=== PATIENT | male | born 1980 | race Hispanic/Latino ===

== ENCOUNTER 2017-06-13 13:39 | Emergency (ER) | payer OTHER ==
[2017-06-13 13:53] VITALS: RESP 16; TEMP 98.7
[2017-06-13 13:54] VITALS: BMI 39.1
--- NOTE | 2017-06-13 15:35 | ED PDOC ---
Arrival/HPI - General Chief Complaint: Lower Extremity Problem/Injury Time Seen by Provider: 06/13/17 14:07 Historian: Patient - History of Present Illness Narrative History of Present Illness (Text): 06/13/17 15:35 37 yo male come in for evaluation of left ankle/lower leg pain, bruising and some swelling developed 1 week ago after sustained blunt injury at work. Pt reports, " leg was caught between two plates". Pt sts, noted some bruising few days ago. Otherwise, pt denies obvious deformity, open wounds, denies weakness, sensory or vascular deficits to Left leg. Ambulate to Ed for evaluation with stable gait, not in any apparent distress. Past Medical History - Provider Review Nursing Documentation Reviewed: Yes - Travel History Have you recently traveled outside US w/in the past 3 mons?: No - Past History Past History: No Previous - Infectious Disease Hx of Infectious Diseases: None - Tetanus Immunization Tetanus Immunization: Unknown - Past Medical History Past Medical History: No Previous - Psychiatric Hx Depression: No Hx Emotional Abuse: No Hx Physical Abuse: No Hx Substance Use: No - Suicidal Assessment Feels Threatened In Home Enviroment: No Family/Social History - Physician Review Nursing Documentation Reviewed: Yes Family/Social History: No Known Family HX Smoking Status: Former Smoker Hx Alcohol Use: Yes Frequency of alcohol use: Socially Hx Substance Use: No Hx Substance Use Treatment: No Allergies/Home Meds Allergies/Adverse Reactions: Allergies No Known Allergies Allergy (Verified 05/19/13 16:45) Home Medications: Home Meds Medication Instructions Recorded Confirmed No Known Home Med 05/19/13 05/19/13 Review of Systems - Physician Review All systems were reviewed & negative as marked: Yes - Review of Systems Constitutional: Normal Musculoskeletal: Other (Left ankle and lower leg pain) Skin: Other (bruising) Neurological: Normal Endocrine: Normal Hemo/Lymphatic: Normal Psychiatric: Normal Physical Exam Vital Signs Reviewed: Yes Vital Signs Temp Pulse Resp BP Pulse Ox 06/13/17 13:40 98.7 F 98 H 16 130/84 97 Temperature: Afebrile Blood Pressure: Normal Pulse: Regular Respiratory Rate: Normal Appearance: Positive for: Well-Appearing, Non-Toxic, Comfortable Pain Distress: Mild Mental Status: Positive for: Alert and Oriented X 3 - Systems Exam Upper Extremity: Present: Normal Inspection Lower Extremity: Present: NORMAL PULSES, Normal ROM, Tenderness (mild tenderness over distal fibula and lateral malleolus of Left ankle with diffuse trace ecchymoses over distal tib/fib extend down to ankle area over lateral mallolus with trace edema over dorsal aspect left foot), Neurovascularly Intact , Capillary Refill < 2 s (Left foot). No: Erythema, Deformity Neurological: Present: GCS=15, Speech Normal Skin: Present: Warm, Dry, Normal Color Psychiatric: Present: Alert, Oriented x 3 Medical Decision Making ED Course and Treatment: 06/13/17 On re-eavl, pt is afebrile, hemodynamicaly stable. Non-toxic. Ambulatory in Ed with stable gait. Left LE: exam c/w contusion. FAROM, no neurovascular deficits. xray review (-)a cute fx. Lester wrap applied to left ankle/distal tib/fib. pt advised and ref. to f/u with ortho in 2-3 days for re-eval. return to ED if any worsening or new changes. - RAD Interpretation Radiology Orders: 06/13/17 14:49 ANKLE LEFT 3 VIEWS ROUTINE [RAD] Stat FOOT LEFT 3 VIEWS ROUTINE [RAD] Stat TIBIA FIBULA LEFT [RAD] Stat (-)acute fx or dislocation Disposition/Present on Arrival - Present on Arrival Any Indicators Present on Arrival: No History of DVT/PE: No History of Uncontrolled Diabetes: No Urinary Catheter: No History of Decub. Ulcer: No History Surgical Site Infection Following: None - Disposition Have Diagnosis and Disposition been Completed?: Yes Diagnosis: Contusion of leg Disposition: HOME/ ROUTINE Disposition Time: 15:32 Patient Plan: Discharge Condition: STABLE Discharge Instructions (ExitCare): Contusion in Adults (ED) Additional Instructions: keep leg elevate as much as possible Lester wrap for 1 week Avoid prolong walking for 1 week Follow up with PMD, Orthopedist in 1-2 days for re-evaluation. Return to ED if any worsening or new changes. Referrals: PCP,NO [Primary Care Provider] - Follow up with primary Gio Portillo MD [Staff Provider] - Follow up with primary [facility] [Outside] - Follow up with primary Forms: [employer] (Serbian), [employer] (German), WORK NOTE
[2017-06-13 16:00] VITALS: BP 117/77; PULSE 88; O2SAT 94
--- NOTE | 2017-06-13 17:11 | RAD ---
PROCEDURE: Radiographs of the left tibia and fibula. HISTORY: injury COMPARISON: None available. TECHNIQUE: Frontal and lateral views obtained. FINDINGS: BONES: No fracture or destructive lesion. JOINT SPACES: Unremarkable. OTHER FINDINGS: None. IMPRESSION: Unremarkable radiographs of the left tibia and fibula.
--- NOTE | 2017-06-13 17:12 | RAD ---
PROCEDURE: Left Ankle Radiographs. HISTORY: injury COMPARISON: None FINDINGS: BONES: Normal. No fracture. Small plantar calcaneal spur is identified. The ankle mortise appears intact send JOINTS: Normal. No osteoarthritis. Ankle mortise maintained. Talar dome intact SOFT TISSUES: Normal. OTHER FINDINGS: None. IMPRESSION: Normal left ankle radiographs.
--- NOTE | 2017-06-13 17:12 | RAD ---
PROCEDURE: Left Foot Radiographs. HISTORY: injury COMPARISON: None. FINDINGS: BONES: Normal. No fracture. Small plantar calcaneal spurs identified at the calcaneal base. JOINTS: Normal. SOFT TISSUES: Normal. OTHER FINDINGS: None. IMPRESSION: Normal left foot radiographs.
== END 2017-06-13 16:00 | disposition home or self-care (01) ==
LOC: ED 13:39
DX: S80.12XA Contusion of left lower leg, initial encounter (principal); W23.0XXA Caught, crushed, jammed, or pinched between moving objects, initial encounter; Y93.89 Activity, other specified; Y92.69 Other specified industrial and construction area as the place of occurrence of the external cause; Y99.0 Civilian activity done for income or pay

== ENCOUNTER 2018-03-19 14:16 | Inpatient (IN) | payer OTHER ==
[2018-03-19 14:40] VITALS: BMI 39.4
--- NOTE | 2018-03-19 15:01 | ED PDOC ---
Arrival/HPI - General Chief Complaint: Abdominal Pain Time Seen by Provider: 03/19/18 14:21 Historian: Patient - History of Present Illness Narrative History of Present Illness (Text): you were treated in the ED today for hx of recent umbilical hernia repair on 03/05, had wound evaluated with brian removed past Monday and felt some pressure and then protruding of belly button but wound rednss/wound discharge/ otherwise without any nausea/vomiting/headache/dizziness/difficulty breathing/ chest pain/abdomen pain/numbness/tingling/loss of limb function/pain with urination. You were eating/drinking/passing gas and having normal bowel movements. Time/Duration: 24 hours Symptom Onset: Gradual Symptom Course: Improving Quality: Other Activities at Onset: Rest Context: Sitting Past Medical History - Provider Review Nursing Documentation Reviewed: Yes - Travel History Have you recently traveled outside US w/in the past 3 mons?: No - Past History Past History: No Previous - Infectious Disease Hx of Infectious Diseases: None - Tetanus Immunization Tetanus Immunization: Unknown - Past Medical History Past Medical History: No Previous - Psychiatric Hx Depression: No Hx Emotional Abuse: No Hx Physical Abuse: No Hx Substance Use: No - Anesthesia Hx Anesthesia: Yes Hx Anesthesia Reactions: No Hx Malignant Hyperthermia: No - Suicidal Assessment Feels Threatened In Home Enviroment: No Family/Social History - Physician Review Nursing Documentation Reviewed: Yes Family/Social History: No Known Family HX Smoking Status: Former Smoker Hx Alcohol Use: Yes Hx Substance Use: No Hx Substance Use Treatment: No Allergies/Home Meds Allergies/Adverse Reactions: Allergies No Known Allergies Allergy (Verified 03/19/18 14:44) Home Medications: Home Meds Medication Instructions Recorded Confirmed No Known Home Med 05/19/13 03/19/18 Review of Systems - Review of Systems Constitutional: Normal Eyes: Normal ENT: Normal Respiratory: Normal Cardiovascular: Normal Gastrointestinal: Normal Genitourinary Male: Normal Musculoskeletal: Normal Skin: Normal Neurological: Normal Endocrine: Normal Hemo/Lymphatic: Normal Physical Exam Vital Signs Reviewed: Yes Vital Signs Temp Pulse Resp BP Pulse Ox 03/19/18 14:40 98.1 F 96 H 18 141/94 H 98 Temperature: Afebrile Blood Pressure: Hypertensive Pulse: Regular Respiratory Rate: Normal Appearance: Positive for: Well-Appearing, Non-Toxic, Comfortable Pain Distress: None Mental Status: Positive for: Alert and Oriented X 3 - Systems Exam Head: Present: Atraumatic, Normocephalic Pupils: Present: PERRL Extroacular Muscles: Present: EOMI Conjunctiva: Present: Normal Ears: Present: Normal Mouth: Present: Moist Mucous Membranes Pharnyx: Present: Normal Nose (External): Present: Atraumatic Nose (Internal): Present: Normal Inspection Neck: Present: Normal Range of Motion Respiratory/Chest: Present: Clear to Auscultation, Good Air Exchange Cardiovascular: No: Regular Rate and Rhythm, Murmurs, Normal S1, S2, Irregular Rhythm, Peripheal Pulses Present, Tachycardic, Bradycardic, Rub, Gallop, Muffled , Other Abdomen: Present: Scars, Other ( belly button wound clean/dry/intact with mild protruding of belly button but without any tenderness or discomfort). No: Tenderness, Distention, Normal Bowel Sounds, Peritoneal Signs, Rebound, Guarding , McBurney's Point Tender, Rovsing's Sign Present, Hernias, Feeding Tubes, Ostomy Tubes, Mass/Organomegaly Back: Present: Normal Inspection Upper Extremity: Present: Normal Inspection Lower Extremity: Present: Normal Inspection Neurological: Present: GCS=15, CN II-XII Intact, Speech Normal, Motor Func Grossly Intact Skin: Present: Warm, Normal Color Psychiatric: Present: Alert, Oriented x 3, Normal Insight, Normal Concentration Medical Decision Making ED Course and Treatment: you were treated in the ED today for hx of recent umbilical hernia repair on 03/05, had wound evaluated with brian removed past Monday and felt some pressure and then protruding of belly button but wound rednss/wound discharge/ otherwise without any nausea/vomiting/headache/dizziness/difficulty breathing/ chest pain/abdomen pain/numbness/tingling/loss of limb function/pain with urination. You were eating/drinking/passing gas and having normal bowel movements. You were otherwise breathing easily, smiling joking around in the ED , good strength/sensation, walking easily, clear lungs, no abdomen tenderness, belly button wound clean/dry/intact with mild protruding of belly button but without any tenderness or discomfort, no fever temp 98.1, stable heart rate 96, stable breathing rate 18, excellent oxygen level 98% room air, elevated blood pressure 141/94 which we recommend repeat in 2-3 days primary care office to determine further treatment, discussion with Dr. Turcios surgeon/ Dr. Sharma surgical team who stated you can go home at this time and followup with Dr. Vega office [phone] in 1-2 days to review repeat procedure to bring down your umbilicus, observation done in the ED with improvement, counselled to monitor symptoms and thus discharged home. 1. Recommend follow-up primary care 1 -2 days to review symptoms, referral to Dr. Vega surgery [phone]. to review repeat procedure to bring down your umbilicus. 2. If any worsening pain, fever, chills, nausea, vomiting, difficulty breathing, numbness, loss of limb function, pain with urination or any medical condition then return to the ED. 03/19/18 15:02 03/19/18 15:26 Reassessment Condition: Re-examined, Improved Disposition/Present on Arrival - Present on Arrival Any Indicators Present on Arrival: No History of DVT/PE: No History of Uncontrolled Diabetes: No Urinary Catheter: No History of Decub. Ulcer: No History Surgical Site Infection Following: None - Disposition Have Diagnosis and Disposition been Completed?: Yes Diagnosis: Encounter for postoperative wound check Disposition: HOME/ ROUTINE Disposition Time: 15:29 Patient Plan: Discharge Condition: IMPROVED Additional Instructions: you were treated in the ED today for hx of recent umbilical hernia repair on 03/05, had wound evaluated with brian removed past Monday and felt some pressure and then protruding of belly button but wound rednss/wound discharge/ otherwise without any nausea/vomiting/headache/dizziness/difficulty breathing/ chest pain/abdomen pain/numbness/tingling/loss of limb function/pain with urination. You were eating/drinking/passing gas and having normal bowel movements. You were otherwise breathing easily, smiling joking around in the ED , good strength/sensation, walking easily, clear lungs, no abdomen tenderness, belly button wound clean/dry/intact with mild protruding of belly button but without any tenderness or discomfort, no fever temp 98.1, stable heart rate 96, stable breathing rate 18, excellent oxygen level 98% room air, elevated blood pressure 141/94 which we recommend repeat in 2-3 days primary care office to determine further treatment, discussion with Dr. Turcios surgeon/ Dr. Sharma surgical team who stated you can go home at this time and followup with Dr. Vega office [phone] in 1-2 days to review repeat procedure to bring down your umbilicus, observation done in the ED with improvement, counselled to monitor symptoms and thus discharged home. 1. Recommend follow-up primary care 1 -2 days to review symptoms, referral to Dr. Vega surgery [phone]. to review repeat procedure to bring down your umbilicus. 2. If any worsening pain, fever, chills, nausea, vomiting, difficulty breathing, numbness, loss of limb function, pain with urination or any medical condition then return to the ED. Referrals: Gorge Vega MD [Staff Provider] - Follow up with primary Forms: [employer] (Belarusian)
[2018-03-19 17:06] LABS: BASO # 0.03 K/mm3 (0.0-2.0); BASO % 0.4 % (0.0-3.0); EOS # 0.2 (0.0-0.7); EOS % 1.9 % (1.5-5.0); GRAN # 5.35 (1.4-6.5); GRAN % 63.7 % (50.0-68.0); HEMOGLOBIN 16.7 g/dL (14.0-18.0); LYMPH # 2.3 (1.2-3.4); LYMPH % 27.1 % (22.0-35.0); MEAN CELL VOLUME 88.2 fl (80.0-105.0); MEAN CORPUSCULAR HEMOGLOBIN 31.2 pg (25.0-35.0); MEAN CORPUSCULAR HGB CONC 35.3 g/dl (31.0-37.0); MEAN PLATELET VOLUME 9.9 fl (7.0-11.0); MONO # 0.6 (0.1-0.6); MONO % 6.9 % (1.0-6.0); RBC 5.36 10^6/uL (3.5-6.1); WHITE BLOOD COUNT 8.4 10^3/ul (4.5-11.0)
[2018-03-19 17:17] LABS: ALB/GLOB RATIO 1.5 (1.1-1.8); ALBUMIN 4.8 g/dL (3.0-4.8); ALT/SGPT 60 U/L (7-56); AST/SGOT 52 U/L (17-59); BLOOD UREA NITROGEN 14 mg/dL (7-21); CALCIUM 9.6 mg/dL (8.4-10.5); GFR AFRICAN-AMERICAN > 60; GFR NON-AFRICAN AMERICAN > 60
--- NOTE | 2018-03-19 17:30 | CP.PCM.HP ---
History of Present Illness - History of Present Illness History of Present Illness: Surgery H&P 38 M with PSH of recent umbilical hernia repair came with recurrent hernia. [place] [facility] [place] had brian removed a few days ago. This AM , he had sharp pain on the umbilical area and noticed umbilical area skin bulging. Denies heavy lifting, fever, chills, nausea, vomiting, hematemesis , hematochezia, melena, constipation, SOB, chest pain or diarrhea. Area is enlarging and reports some skin changes with excoriation of the umbilical area skin. Pain worsen and decided to come to ED. PSH: Umbilical hernia repair (03/06) Present on Admission - Present on Admission Any Indicators Present on Admission: No Review of Systems - Review of Systems Review of Systems: See HPI Past Patient History - Infectious Disease Hx of Infectious Diseases: None - Tetanus Immunizations Tetanus Immunization: Unknown - Past Social History Smoking Status: Former Smoker - PSYCHIATRIC Hx Depression: No Hx Emotional Abuse: No Hx Physical Abuse: No Hx Substance Use: No - SURGICAL HISTORY Hx Surgeries: Yes Hx Herniorrhaphy: Yes - ANESTHESIA Hx Anesthesia: Yes Hx Anesthesia Reactions: No Hx Malignant Hyperthermia: No Meds Allergies/Adverse Reactions: Allergies Allergy/AdvReac Type Severity Reaction Status Date / Time No Known Allergies Allergy Verified 03/19/18 14:44 Physical Exam - Constitutional Appears: No Acute Distress - Head Exam Head Exam: ATRAUMATIC, NORMAL INSPECTION, NORMOCEPHALIC - Eye Exam Eye Exam: EOMI, Normal appearance, PERRL Pupil Exam: NORMAL ACCOMODATION, PERRL - ENT Exam ENT Exam: Mucous Membranes Moist, Normal Exam - Neck Exam Neck exam: Positive for: Normal Inspection - Respiratory Exam Respiratory Exam: Clear to Auscultation Bilateral, NORMAL BREATHING PATTERN - Cardiovascular Exam Cardiovascular Exam: REGULAR RHYTHM - GI/Abdominal Exam GI & Abdominal Exam: Hernia, Normal Bowel Sounds, Soft, Tenderness. absent: Distended, Firm, Guarding, Mass, Pulsatile Mass, Rebound, Rigid Additional comments: [id number] umbilical hernia bulge. 1x1cm hernia defect. TTP. SKin excoriation. Irreducible. infra umbilical incision clean dry and intact. [place] removed. - Exam Exam: NORMAL INSPECTION - Extremities Exam Extremities exam: Positive for: full ROM, normal inspection - Back Exam Back exam: NORMAL INSPECTION - Neurological Exam Neurological exam: Alert, CN II-XII Intact, Normal Gait, Oriented x3, Reflexes Normal - Psychiatric Exam Psychiatric exam: Normal Affect, Normal Mood - Skin Skin Exam: Dry, Intact, Normal Color, Warm Results - Vital Signs Recent Vital Signs: Last Vital Signs Temp 98.1 F 03/19/18 14:40 Pulse 86 03/19/18 16:16 Resp 18 03/19/18 16:16 BP 138/87 03/19/18 16:16 Pulse Ox 98 03/19/18 16:16 - Labs Result Diagrams: 03/19/18 16:53 03/19/18 16:53 Labs: Laboratory Results - last 24 hr 03/19/18 03/19/18 16:53 16:53 WBC 8.4 RBC 5.36 Hgb 16.7 Hct 47.3 MCV 88.2 MCH 31.2 MCHC 35.3 RDW 13.0 Plt Count 259 MPV 9.9 Gran % 63.7 Lymph % (Auto) 27.1 [place] % (Auto) 6.9 H Eos % (Auto) 1.9 Baso % (Auto) 0.4 Gran # 5.35 Lymph # (Auto) 2.3 [place] # (Auto) 0.6 Eos # (Auto) 0.2 Baso # (Auto) 0.03 Sodium 142 Potassium 4.3 Chloride 102 Carbon Dioxide 29 Anion Gap 16 BUN 14 Creatinine 0.8 Est GFR ( Amer) > 60 Est GFR (Non-Af Amer) > 60 Random Glucose 88 Calcium 9.6 Total Bilirubin 1.0 AST 52 ALT 60 H Alkaline Phosphatase 46 Total Protein 7.9 Albumin 4.8 Globulin 3.1 Albumin/Globulin Ratio 1.5 Assessment & Plan - Assessment and Plan (Free Text) Assessment: recurrent Incarcerated umbilical hernia s/p recent hernia repair with mesh -OR tomorrow for repair of recurrent incarcerated umbilical hernia -NPo after midnight -IVF LUDIVINA Vega
[2018-03-19] MEDS ORDERED: Morphine 5 MG/ML SYRINGE IVP PRN (17:43)
[2018-03-19 17:55] LABS: INR 0.99 (0.93-1.08); PARTIAL THROMBOPLASTIN TIME 25.2 Seconds (25.1-36.5); PROTHROMBIN TIME 11.3 SECONDS (9.4-12.5)
--- NOTE | 2018-03-19 18:36 | CP.PCM.PCO ---
Physician Communication Note - Physician Communication Note Physician Communication Note: Acute recurrent umbilical hernia today/OR in am
[2018-03-20 07:23] LABS: BASO # 0.04 K/mm3 (0.0-2.0); BASO % 0.5 % (0.0-3.0); EOS # 0.3 (0.0-0.7); EOS % 2.9 % (1.5-5.0); GRAN # 4.65 (1.4-6.5); HEMOGLOBIN 15.5 g/dL (14.0-18.0); LYMPH # 3.2 (1.2-3.4); LYMPH % 36.4 % (22.0-35.0); MEAN CELL VOLUME 88.9 fl (80.0-105.0); MEAN CORPUSCULAR HEMOGLOBIN 30.6 pg (25.0-35.0); MEAN CORPUSCULAR HGB CONC 34.4 g/dl (31.0-37.0); MEAN PLATELET VOLUME 9.9 fl (7.0-11.0); MONO # 0.6 (0.1-0.6); MONO % 7.2 % (1.0-6.0); RBC 5.06 10^6/uL (3.5-6.1); RED CELL DISTRIBUTION WIDTH 13.1 % (11.5-14.5); WHITE BLOOD COUNT 8.8 10^3/ul (4.5-11.0)
[2018-03-20 07:35] LABS: INR 1.04 (0.93-1.08); PARTIAL THROMBOPLASTIN TIME 29.1 Seconds (25.1-36.5)
--- NOTE | 2018-03-20 07:37 | RAD ---
HISTORY: preop COMPARISON: No prior. TECHNIQUE: Chest PA and lateral FINDINGS: LUNGS: No active pulmonary disease. PLEURA: No significant pleural effusion identified. No pneumothorax apparent. CARDIOVASCULAR: Normal. OSSEOUS STRUCTURES: No significant abnormalities. VISUALIZED UPPER ABDOMEN: Normal. OTHER FINDINGS: None. IMPRESSION: No active disease.
[2018-03-20 07:47] LABS: ALB/GLOB RATIO 1.5 (1.1-1.8); ALBUMIN 4.1 g/dL (3.0-4.8); ALT/SGPT 55 U/L (7-56); AST/SGOT 42 U/L (17-59); BLOOD UREA NITROGEN 17 mg/dL (7-21); CALCIUM 9.3 mg/dL (8.4-10.5); GFR AFRICAN-AMERICAN > 60; GFR NON-AFRICAN AMERICAN > 60
[2018-03-20] MEDS: Dextrose 5%/0.45% NS 1,000 ML IV SCH (08:53)
--- NOTE | 2018-03-20 11:20 | CARD ---
APPROVED REPORT EKG Measurement Heart [id number] <Conclusion> Normal sinus rhythm with sinus arrhythmia Incomplete right bundle branch block Borderline ECG
[2018-03-20] MEDS ORDERED: Propofol 10 mg/ml Inj (20 ML) ONE (16:04)
[2018-03-20] MEDS ORDERED: Midazolam 2 MG/2 ML VIAL ONE (16:05)
[2018-03-20] MEDS ORDERED: Lidocaine 1% Inj (20ml) ONE (16:05)
[2018-03-20] MEDS ORDERED: Rocuronium 10 mg/ml (5 ml) ONE ×2 (16:05→16:57)
[2018-03-20] MEDS ORDERED: Neostigmine Methylsulfate 3mg/3ml Syringe IV ONE (16:06)
[2018-03-20] MEDS ORDERED: Bupivacaine 0.5% Inj(30mL) ONE (16:17)
[2018-03-20] MEDS ORDERED: HYDROmorphone 0.5 mg/0.5 ml ISec IVP PRN (18:04)
--- NOTE | 2018-03-20 18:06 | PCM.SURG1 ---
Surgeon's Initial Post Op Note - Surgeon's Notes Surgeon: Dr. reyes Director [employer]: Ayan Sharma PGY2 Type of Anesthesia: General Endo, Local Pre-Operative Diagnosis: incarcerated recurrent umbilical hernia Operative Findings: brown serous fluid collection with cavity 50cc in subcutaneous area. Mesh. Peritoneal mass. brown Intraperitonal serous fluids 50cc. Post-Operative Diagnosis: Incarcerated umbilical hernia, seroma Operation Performed: Abdominal hernia primary repair, removal of infected mesh, evacuationi of seroma Specimen/Specimens Removed: brown seroma 100cc, infected mesh, fibrotic inflammed tissue, seroma cavity Estimated Blood Loss: EBL {In ML}: 20 Blood Products Given: N/A Drains Used: Ky Busby Post-Op Condition: Fair Date of Surgery/Procedure: 03/20/18 Time of Surgery/Procedure: 18:09
[2018-03-20] MEDS ORDERED: HYDROmorphone 0.5 mg/0.5 ml ISec ONE ×2 (18:12→18:24)
[2018-03-20] MEDS ORDERED: Lactated Ringer's 1,000 ML IV SCH (18:15)
[2018-03-20] MEDS: Morphine 5 MG/ML SYRINGE IV PRN (20:30)
[2018-03-20] MEDS: metroNIDAZOLE IV 250mg/50 ml 250 MG/50 ML BAG IVPB SCH (21:55)
[2018-03-21] MEDS: Morphine 5 MG/ML SYRINGE IV PRN ×3 (02:00→21:47)
[2018-03-21] MEDS: Dextrose 5%/0.45% NS 1,000 ML IV SCH (05:48)
[2018-03-21] MEDS: metroNIDAZOLE IV 250mg/50 ml 250 MG/50 ML BAG IVPB SCH ×3 (05:48→21:37)
[2018-03-21] MEDS: Oxycodone/Acetaminophen 5/325 mg Tab PO PRN ×2 (06:56→16:14)
[2018-03-21 07:31] LABS: BASO # 0.03 K/mm3 (0.0-2.0); BASO % 0.3 % (0.0-3.0); EOS # 0.1 (0.0-0.7); EOS % 1.1 % (1.5-5.0); GRAN # 7.44 (1.4-6.5); GRAN % 69.6 % (50.0-68.0); HEMOGLOBIN 13.8 g/dL (14.0-18.0); LYMPH # 2.3 (1.2-3.4); LYMPH % 21.1 % (22.0-35.0); MEAN CORPUSCULAR HEMOGLOBIN 30.7 pg (25.0-35.0); MEAN CORPUSCULAR HGB CONC 34.1 g/dl (31.0-37.0); MEAN PLATELET VOLUME 10.1 fl (7.0-11.0); MONO # 0.8 (0.1-0.6); MONO % 7.9 % (1.0-6.0); RBC 4.5 10^6/uL (3.5-6.1); RED CELL DISTRIBUTION WIDTH 13.2 % (11.5-14.5); WHITE BLOOD COUNT 10.7 10^3/ul (4.5-11.0)
[2018-03-21 07:54] LABS: ALB/GLOB RATIO 1.5 (1.1-1.8); ALBUMIN 3.7 g/dL (3.0-4.8); ALT/SGPT 55 U/L (7-56); AST/SGOT 41 U/L (17-59); BLOOD UREA NITROGEN 17 mg/dL (7-21); CALCIUM 8.8 mg/dL (8.4-10.5); GFR AFRICAN-AMERICAN > 60; GFR NON-AFRICAN AMERICAN > 60
[2018-03-21] MEDS: cefTRIAXone 1 gm 1 GM/100 ML BAG IVPB SCH (10:49)
--- NOTE | 2018-03-21 11:45 | CP.PCM.PN ---
Subjective - Date & Time of Evaluation Date of Evaluation: 03/21/18 Time of Evaluation: 11:44 - Subjective Subjective: General Surgery: Dr Vega Pt S&E. POD#1 s/p exploratory lap w/ removal of infected mesh and primary closure of umbilical hernia. Pt reports he has abdominal pain, worse with coughing. Admits to passing flatus. Denies nausea/vomiting. Has been OOB and ambulating. Objective - Vital Signs/Intake and Output Vital Signs (last 24 hours): Temp Pulse Resp BP Pulse Ox 98.2 F 66 20 106/70 95 03/21/18 06:00 03/21/18 06:00 03/21/18 06:00 03/21/18 06:00 03/21/18 06:00 Intake and Output: 03/21/18 03/21/18 06:59 18:59 Intake Total 480 Balance 480 - Medications Medications: Current Medications Acetaminophen (Tylenol 325mg Tab) 650 mg PO Q4 PRN PRN Reason: Fever >100.4 F Dextrose/Sodium Chloride (Dextrose 5%/0.45% Ns 1000 Ml) 1,000 mls @ 100 mls/hr IV .Q10H [facility] Last Admin: 03/21/18 05:48 Dose: 100 mls/hr Metronidazole (Flagyl) 250 mg in 50 mls @ 100 mls/hr IVPB Q8 JAYME PRN Reason: Protocol Stop: 03/25/18 22:01 Last Admin: 03/21/18 05:48 Dose: 100 mls/hr Ceftriaxone Sodium (Rocephin 1 Gram Ivpb) 1 gm in 100 mls @ 100 mls/hr IVPB DAILY JAYME PRN Reason: Protocol Last Admin: 03/21/18 10:49 Dose: 100 mls/hr Metoclopramide HCl (Reglan) 10 mg IV ONCE PRN PRN Reason: Nausea/Vomiting Morphine Sulfate (Morphine) 5 mg IV Q6H PRN PRN Reason: Pain, severe (8-10) Last Admin: 03/21/18 11:10 Dose: 5 mg Ondansetron HCl (Zofran Inj) 4 mg IVP Q4 PRN PRN Reason: Nausea/Vomiting Oxycodone/Acetaminophen (Percocet 5/325 Mg Tab) 2 tab PO Q4H PRN PRN Reason: Pain, moderate (4-7) Stop: 03/23/18 18:21 Last Admin: 03/21/18 06:56 Dose: 2 tab - Labs Labs: 03/21/18 07:10 03/21/18 07:10 PT 12.0 SECONDS (9.4-12.5) 03/20/18 07:00 INR 1.04 (0.93-1.08) 03/20/18 07:00 APTT 29.1 Seconds (25.1-36.5) 03/20/18 07:00 - Constitutional Appears: Non-toxic, No Acute Distress - Eye Exam Eye Exam: Normal appearance - Respiratory Exam Respiratory Exam: absent: Accessory Muscle Use, Respiratory Distress - Cardiovascular Exam Cardiovascular Exam: REGULAR RHYTHM. absent: Tachycardia - GI/Abdominal Exam GI & Abdominal Exam: Soft, Tenderness (post-op and appropriate). absent: Distended, Firm, Guarding, Rigid, Mass, Rebound - Extremities Exam Extremities Exam: absent: Pedal Edema - Neurological Exam Neurological Exam: Alert, Awake, Oriented x3 - Psychiatric Exam Psychiatric exam: Normal Affect, Normal Mood - Skin Skin Exam: Normal Color, Warm Assessment and Plan - Assessment and Plan (Free Text) Assessment: 38M POD#1 s/p removal of infected mesh Plan: ok to start CLD f/u OR cultures cont abx pt needs to ambulate more d/w Dr Gary Hammond, PGY3
[2018-03-21] MEDS: Simethicone 80 mg Chewtab PO SCH ×2 (17:31→21:40)
[2018-03-22] MEDS: metroNIDAZOLE IV 250mg/50 ml 250 MG/50 ML BAG IVPB SCH ×3 (06:10→21:29)
[2018-03-22] MEDS: Dextrose 5%/0.45% NS 1,000 ML IV SCH (06:17)
[2018-03-22 07:40] VITALS: RESP 20
[2018-03-22] MEDS ORDERED: Morphine 5 MG/ML SYRINGE IV PRN (07:41)
--- NOTE | 2018-03-22 08:00 | CP.PCM.PN ---
Subjective - Date & Time of Evaluation Date of Evaluation: 03/22/18 Time of Evaluation: 07:56 - Subjective Subjective: General Surgery: Dr Vega Pt S&E. NAEO. Reports pain is present but controlled. Worse with movement. PT requesting alternative to percocet as that made him feel disoriented. Has been tolerating CLD. Denies any flatus yet. Has been OOB and ambulating frequently. Objective - Vital Signs/Intake and Output Vital Signs (last 24 hours): Temp Pulse Resp BP Pulse Ox 98.9 F 81 20 139/72 97 03/22/18 07:39 03/22/18 07:39 03/22/18 07:39 03/22/18 07:39 03/22/18 07:39 Intake and Output: 03/22/18 03/22/18 06:59 18:59 Intake Total 1215 Output Total 220 Balance 995 - Medications Medications: Current Medications Acetaminophen (Tylenol 325mg Tab) 650 mg PO Q4 PRN PRN Reason: Fever >100.4 F Dextrose/Sodium Chloride (Dextrose 5%/0.45% Ns 1000 Ml) 1,000 mls @ 100 mls/hr IV .Q10H [facility] Last Admin: 03/22/18 06:17 Dose: 100 mls/hr Metronidazole (Flagyl) 250 mg in 50 mls @ 100 mls/hr IVPB Q8 JAYME PRN Reason: Protocol Stop: 03/25/18 22:01 Last Admin: 03/22/18 06:10 Dose: 100 mls/hr Ceftriaxone Sodium (Rocephin 1 Gram Ivpb) 1 gm in 100 mls @ 100 mls/hr IVPB DAILY JAYME PRN Reason: Protocol Last Admin: 03/21/18 10:49 Dose: 100 mls/hr Ketorolac Tromethamine (Toradol) 15 mg IM Q6 PRN PRN Reason: Pain, severe (8-10) Stop: 03/27/18 07:40 Metoclopramide HCl (Reglan) 10 mg IV ONCE PRN PRN Reason: Nausea/Vomiting Morphine Sulfate (Morphine) 5 mg IV Q6H PRN PRN Reason: Pain, moderate (4-7) Ondansetron HCl (Zofran Inj) 4 mg IVP Q4 PRN PRN Reason: Nausea/Vomiting Simethicone (Mylicon Chew Tab) 40 mg PO QID JAYME Last Admin: 03/21/18 21:40 Dose: 40 mg Tramadol HCl (Ultram) 50 mg PO TID PRN PRN Reason: Pain, Mild (1-3) - Labs Labs: 03/21/18 07:10 03/21/18 07:10 PT 12.0 SECONDS (9.4-12.5) 03/20/18 07:00 INR 1.04 (0.93-1.08) 03/20/18 07:00 APTT 29.1 Seconds (25.1-36.5) 03/20/18 07:00 - Constitutional Appears: Non-toxic, No Acute Distress - ENT Exam ENT Exam: Mucous Membranes Moist - Respiratory Exam Respiratory Exam: absent: Accessory Muscle Use, Respiratory Distress - Cardiovascular Exam Cardiovascular Exam: REGULAR RHYTHM - GI/Abdominal Exam GI & Abdominal Exam: Soft, Tenderness (post-op and appropriate). absent: Distended, Firm - Extremities Exam Extremities Exam: absent: Pedal Edema - Neurological Exam Neurological Exam: Alert, Awake, Oriented x3 - Psychiatric Exam Psychiatric exam: Normal Affect, Normal Mood - Skin Skin Exam: Normal Color, Warm Assessment and Plan - Assessment and Plan (Free Text) Assessment: 38M POD#2 s/p mesh removal and primary abdominal closure Plan: cont current care will cont CLD until passes flatus continue to encourage ambulation and IS use d/c percocet and started toradol and ultram will d/w Dr Gary Hammond, PGY3
[2018-03-22] MEDS: Simethicone 80 mg Chewtab PO SCH ×4 (10:00→21:31)
[2018-03-22] MEDS: cefTRIAXone 1 gm 1 GM/100 ML BAG IVPB SCH (10:19)
[2018-03-23] MEDS: metroNIDAZOLE IV 250mg/50 ml 250 MG/50 ML BAG IVPB SCH ×2 (05:52→13:54)
--- NOTE | 2018-03-23 07:54 | CP.PCM.DIS ---
Provider - Provider Date of Admission: 03/19/18 15:45 Attending physician: Gorge Vega MD Primary care physician: NO PRIMARY CARE PROVIDER Time Spent in preparation of Discharge (in minutes): 20 Hospital Course - Lab Results Lab Results: Micro Results 03/20/18 18:15 Peritoneal Fluid Anaerobic Culture - Final NO ANAEROBES ISOLATED. Most Recent Lab Values WBC 10.7 10^3/ul (4.5-11.0) D 03/21/18 07:10 RBC 4.50 10^6/uL (3.5-6.1) 03/21/18 07:10 Hgb 13.8 g/dL (14.0-18.0) L 03/21/18 07:10 Hct 40.5 % (42.0-52.0) L 03/21/18 07:10 MCV 90.0 fl (80.0-105.0) 03/21/18 07:10 MCH 30.7 pg (25.0-35.0) 03/21/18 07:10 MCHC 34.1 g/dl (31.0-37.0) 03/21/18 07:10 RDW 13.2 % (11.5-14.5) 03/21/18 07:10 Plt Count 247 10^3/uL (120.0-450.0) 03/21/18 07:10 MPV 10.1 fl (7.0-11.0) 03/21/18 07:10 Gran % 69.6 % (50.0-68.0) H 03/21/18 07:10 Lymph % (Auto) 21.1 % (22.0-35.0) L 03/21/18 07:10 [place] % (Auto) 7.9 % (1.0-6.0) H 03/21/18 07:10 Eos % (Auto) 1.1 % (1.5-5.0) L 03/21/18 07:10 Baso % (Auto) 0.3 % (0.0-3.0) 03/21/18 07:10 Gran # 7.44 (1.4-6.5) H 03/21/18 07:10 Lymph # (Auto) 2.3 (1.2-3.4) 03/21/18 07:10 [place] # (Auto) 0.8 (0.1-0.6) H 03/21/18 07:10 Eos # (Auto) 0.1 (0.0-0.7) 03/21/18 07:10 Baso # (Auto) 0.03 K/mm3 (0.0-2.0) 03/21/18 07:10 PT 12.0 SECONDS (9.4-12.5) 03/20/18 07:00 INR 1.04 (0.93-1.08) 03/20/18 07:00 APTT 29.1 Seconds (25.1-36.5) 03/20/18 07:00 Sodium 140 mmol/L (132-148) 03/21/18 07:10 Potassium 4.1 mmol/L (3.6-5.0) 03/21/18 07:10 Chloride 103 mmol/L (98-107) 03/21/18 07:10 Carbon Dioxide 28 mmol/L (21-33) 03/21/18 07:10 Anion Gap 13 (10-20) 03/21/18 07:10 BUN 17 mg/dL (7-21) 03/21/18 07:10 Creatinine 1.0 mg/dl (0.8-1.5) 03/21/18 07:10 Est GFR ( Amer) > 60 03/21/18 07:10 Est GFR (Non-Af Amer) > 60 03/21/18 07:10 Random Glucose 104 mg/dL (70-110) 03/21/18 07:10 Calcium 8.8 mg/dL (8.4-10.5) 03/21/18 07:10 Total Bilirubin 0.9 mg/dL (0.2-1.3) 03/21/18 07:10 AST 41 U/L (17-59) 03/21/18 07:10 ALT 55 U/L (7-56) 03/21/18 07:10 Alkaline Phosphatase 36 U/L (38-126) L 03/21/18 07:10 Total Protein 6.1 g/dL (5.8-8.3) 03/21/18 07:10 Albumin 3.7 g/dL (3.0-4.8) 03/21/18 07:10 Globulin 2.5 gm/dL 04/25/18 07:10 Albumin/Globulin Ratio 1.5 (1.1-1.8) 03/21/18 07:10 - Hospital Course Hospital Course: Pt is a 38M who 2 weeks ago had an umbilical hernia repair at [place]. Pt presented to [facility] 3 days ago with sudden onset pain at the umbilicus. Pt had a protruding mass. It was felt pt either had recurrence of hernia or developed hematoma. Was taken to OR for exploration, found to have infected hematoma. Previous mesh was subsequently removed and pt underwent primary abdominal hernia repair. Was kept in hospital for pain management and diet tolerance. Today pt is POD#3, he is tolerating a regular diet, ambulating, having BMs. Pain is well controlled on Ultram. Will be d/c today with follow up in office next week. Discharge Exam - Head Exam Head Exam: ATRAUMATIC, NORMAL INSPECTION, NORMOCEPHALIC - Respiratory Exam Respiratory Exam: NORMAL BREATHING PATTERN. absent: Accessory Muscle Use, Respiratory Distress - Cardiovascular Exam Cardiovascular Exam: REGULAR RHYTHM. absent: Tachycardia - GI/Abdominal Exam GI & Abdominal Exam: Soft, Tenderness (post-op and appropriate). absent: Distended, Firm, Guarding, Hernia Additional comments: incision c/d/i - Neurological Exam Neurological exam: Alert, Oriented x3 - Psychiatric Exam Psychiatric exam: Normal Affect, Normal Mood - Skin Skin Exam: Normal Color, Warm Discharge Plan - Follow Up Plan Condition: IMPROVED Disposition: HOME/ ROUTINE Referrals: PCP,NO [Primary Care Provider] -
[2018-03-23 08:24] VITALS: BP 117/72; PULSE 69; TEMP 98.3; O2SAT 98
[2018-03-23] MEDS: cefTRIAXone 1 gm 1 GM/100 ML BAG IVPB SCH (10:52)
--- NOTE | 2018-03-26 20:01 | OP ---
PROCEDURE DATE: 03/20/2018 SURGEON: Gorge Vega MD JUDO TEACHER: Mikal Serrano DO, PGY-3. PATHOLOGY ASSISTANT: Rangel Vu MD SECOND JUDO TEACHER: Ayan Sharma DO, PGY-2. PREOPERATIVE DIAGNOSES: 1. Recurrent ventral-umbilical hernia - nonreducible. 2. Obesity. POSTOPERATIVE DIAGNOSES: 1. A postoperative hematoma (2 liters). 2. Recurrent ventral-umbilical hernia. 3. Peritoneal mass (3 cm). PROCEDURE: 03/20/2018, 1. Emergency laparotomy. 2. Ventral herniorrhaphy. 3. Excision of a peritoneal mass. 4. Evacuation of an abdominal wall massive hematoma (potentially infected). OPERATIVE INDICATIONS: The patient is a 38-year-old male 5 feet 1 inch, 280 pounds, who underwent ventral umbilical herniorrhaphy less than [address] El Turcios at the [facility]. At that time, he placed a hernia plug into the abdominal wall defect and the patient was doing well until the morning of admission when he had sudden onset of periumbilical anterior abdominal pain and a sudden enlargement this firm, nonreducible mass bulging his umbilicus, approximately 4 cm. He comes to the emergency room and as Dr. Turcios is away and we are covering for this case, we evaluated the patient, recommend admission, and after hydrating the patient, loading with antibiotics, we prepared him for urgent surgery. The registered nurse surgical services (Dr. Ayan Sharma) described the nonreducible mass as containing fat, but not bowel. After evaluating the patient and discussing it with him, he is in agreement that the mass should be removed and the etiology of the bulge is presumptively a recurrence, but specific reason for this is not clear and the patient understands this. It is plan that the mesh will be removed, no matter what and either replace with an intraabdominal mesh or depending upon the findings. The patient then signs the informed consent for this procedure. OPERATIVE NOTE: Patient was brought to the operating room, identified by his wrist band, undergoes time-out procedure and was placed on the operative table in a supine manner. Following the induction of general anesthesia and the insertion of an endotracheal tube, sequential compression devices were placed in his lower extremities and the abdomen is electrically clipped and prepped with Hibiclens-chlorhexidine preparation. After a 3-minute time period, patient was then aseptically draped. Infiltration of the previous incision below the umbilicus transversely is performed with bupivacaine 0.5% and incision made, carried on down to the very significant panniculus below. On entering the space where the hernia is anticipated, a large gush of approximately one and half to two liters of brown, mildly odorous fluid is encountered. It has the appearance of bile staining, but cannot be distinguished from old blood either. Cultures were taken of this fluid and submitted for aerobic and anaerobic testing and the hernia sac is now dissected free surrounding the intraabdominal PerFix plug. It is apparent with this dissection that the plug is intact and in place and that the sudden bulging is not a recurrence of the hernia here, but the sudden accumulation of this fluid. Due to the difficulty in exposure, it is necessary at this point to fully explore the abdomen to determine if there is any abdominal or intestinal leakage noted. This was performed by extending the incision medially and laterally another 4 cm on either side and transecting the rectus musculature on each side and entering the peritoneum. Upon entering the peritoneum, the absence of intestinal content is immediately noted and the bowel appears viable and attention was drawn to the central portion of the hernia patch and this is dissected completely free and submitted to pathology in formalin. Somewhat below this on the peritoneum is a surprising 3.5-cm lobulated, smooth-surfaced mass of indeterminate origin and this widely excised and taken off the operative field, aseptically incised and inspected. Contents appears to contain fatty material and does not appear to be a malignant tumor. This too is submitted with the other specimens to pathology for permanent section analysis. At this point, the entire abdomen was completely explored and found to be intact without any damage or danger. A decision was made at this point to repair the abdominal wall in layers using continuous and intermittent closure with #1 PDS and #1 Novafil [id number] sutures. A mesh will not be used because of the potential for infection in this fluid and once the abdominal wall is completely closed, the fascia was infiltrated with bupivacaine. The subcutaneous space was approximated with 3-0 Polysorb interrupted suture and a [place]-Busby drain was placed in the depths of the wound, brought out through a separate stab wound, and secured with 2-0 Surgidac polyester suture. The skin is now closed with the AutoSuture skin stapler and infiltrated with the bupivacaine and a dry dressing is applied. The patient is now awakened, extubated, and transported to the recovery room in a satisfactory condition. Sponge, instrument, and suture count were verified as correct at the end of the procedure. Estimated blood loss during this procedure was minimal and the estimated fluid aspirated on opening the hernia space was approximately two liters. This dictation will be electronically signed without being read. The surgical assistants were extremely important in the dissection and closure of this particular individual and were present throughout from beginning to end. Gorge Vega MD
== END 2018-03-23 15:35 | disposition home or self-care (01) | DRG 354 ==
LOC: ED 14:16 → ERH 15:45 → 5RSO 18:03
PROVIDERS: ADMIT Surgery; ATTEND Surgery
PROC: 0WCG0ZZ Extirpation of Matter from Peritoneal Cavity, Open Approach (ICD-10-PCS; 2018-03-20)
PROC: 0WQF0ZZ Repair Abdominal Wall, Open Approach (ICD-10-PCS; principal; 2018-03-20 15:30)
PROC: 0DBW0ZZ Excision of Peritoneum, Open Approach (ICD-10-PCS; 2018-03-20 15:30)
DX: K43.0 Incisional hernia with obstruction, without gangrene (principal); L76.32 Postprocedural hematoma of skin and subcutaneous tissue following other procedure; Z68.41 Body mass index [BMI] 40.0-44.9, adult; K42.0 Umbilical hernia with obstruction, without gangrene; K66.9 Disorder of peritoneum, unspecified; E66.9 Obesity, unspecified